=== PATIENT | male | born 2000 | race Caucasian/White ===

== ENCOUNTER 2020-01-30 13:57 | Emergency (ER) | payer SELFPAY ==
[2020-01-30 13:59] VITALS: BP 123/73; PULSE 92; RESP 18; TEMP 36.9; O2SAT 99; BMI 19.5
--- NOTE | 2020-01-30 14:02 | ED_ITS ---
Entered by Corina Crawford, acting as scribe for RobertoBrittany HPI - URI/Sore Throat General: Chief Complaint: Fever Stated Complaint: RUNNY NOSE, COUGH, TEMP Time Seen by Provider: 01/30/20 14:00 Source: patient and RN notes reviewed Mode of arrival: ambulatory Limitations: no limitations History of Present Illness: HPI Narrative: 19 yo male presents to ED with complaints of a sore throat, cough and congestion. He said this began 3 days ago. He said he had an elevated temperature this morning (99.4). He said his temperature felt higher last night be didn't check it. MD elicited complaint: fever, cough, sore throat and other (congestion) Pertinent past history: sinusitis Onset (ago): day(s) (3) Consistency: constant Severity: mild Able to tolerate fluids by mouth: Yes Exacerbating factors: nothing Relieving factors: nothing Context: recent dental work Associated symptoms: Reports no associated symptoms; Deny abdominal pain, chills, chest pain, diarrhea, ear or mastoid pain, headache(s), nausea or vomiting Treatments prior to arrival: other (unknown) Review of Systems General: Reports: other (negative unless marked) Const: Denies: chills, body aches, fatigue, malaise or diaphoresis Eyes: Denies: change in vision or blurry vision ENMT: Denies: painful swallowing, hoarseness, ear pain, ear discharge, Change in hearing or nasal discharge Card: Denies: chest pain, palpitations, irregular heart rhythm, syncope, pre- syncope, shortness of breath on exertion or shortness of breath when lying down Resp: Denies: shortness of breath, wheezing or coughing up blood GI: Denies: abdominal pain, nausea, vomiting, vomiting blood, coffee grounds in vomit, diarrhea, constipation, cramping, blood in stool or black tarry stool : Denies: flank pain, difficulty urinating, painful urination, urinary frequency, urinary urgency, decreased urine ouput, urinary incontinence or blood in urine Musc: Denies: neck pain, back pain, extremity pain, extremity swelling, joint pain, joint swelling, joint warmth or joint stiffness Skin/Breast: Denies: rash, skin tenderness or yellow skin Neuro: Denies: headache, numbness in extremities, weakness in extremities, changes in sensation, lack of coordination, difficulty walking, dizziness, vertigo or confusion Endo: Denies: excessive thirst, tired all the time, cold intolerance, excessive sweating, flushing or hot flashes [place]/Lymph: Denies: easy bruising, easy bleeding, petechiae or enlarged lymph nodes All/Imm: Denies: hives, throat swelling, tongue swelling, facial swelling or acute wheezing PFSH ED PFSH: Social History Smoking and tobacco status: current every day smoker Physical Exam Const: COMMON NORMALS: no apparent distress, oriented x3, no limitations, healthy appearing and well nourished EXAM LIMITATIONS: no altered mental status GENERAL APPEARANCE: cooperative, well kempt and well developed ORIE NTATION/CONSCIOUSNESS: Yes awake HENMT: COMMON NORMALS: normocephalic, head/scalp atraumatic, hearing grossly normal bilaterally, external ears normal, EAC's normal, external nose normal and moist oral mucous membranes HEAD & SCALP: normal to inspection, normocephalic and atraumatic FACE & SINUS: normal facial exam and face symmetric NOSE: external nose normal and nares normal EXTERNAL EAR: Yes external ears normal EXTERNAL AUDITORY CANAL: EAC's normal MOUTH: oral and palatal mucosa normal and tongue normal THROAT: posterior oropharynx abnormal erythema; no exudates Eye: COMMON NORMALS: PERRL, EOMs intact bilaterally, conjunctivae normal and no scleral icterus GENERAL EYE: normal appearance of both eyes and normal light reflex CONJUNCTIVA: Yes conjunctivae normal SCLERA: sclerae normal CORNEA: Yes corneas normal PUPIL: Yes PERRL DIRECT OPHTHALMOSCOPY: Yes normal light reflex Neck/C-Spine: COMMON NORMALS: full ROM, no lymphadenopathy, supple, no meningeal signs and no JVD GENERAL: Yes normal visual inspection and Yes trachea midline CERVICAL SPINE: Yes cervical ROM normal Chest: COMMONS NORMALS: inspection of chest normal and palpation of chest normal Resp: COMMON NORMALS: normal respiratory effort, no retractions, no use of accessory muscles and clear to auscultation bilaterally EFFORT & INSPECTION: Yes able to speak in complete sentences AUSCULTATION: clear to auscultation bilaterally Cardio: COMMON NORMALS: no JVD, regular rate, regular rhythm, S1 normal heart sound, S2 normal heart sound, no gallops, no clicks, no murmurs and no rub JUGULAR VENOUS DISTENTION: no JVD RATE: regular rate RHYTHM: regular rhythm HEART SOUNDS: S1 normal and S2 normal GI: COMMON NORMALS: soft to palpation, non-tender, no hepatosplenomegaly and no masses INSPECTION: Yes normal to inspection PALPATION: Yes soft and Yes no hepatosplenomegaly : COMMON NORMALS: Yes no CVA tenderness BLADDER/KIDNEY EXAM: Yes no CVA tenderness Back/Pelvis: COMMON NORMALS: no CVA tenderness, thoracic and lumbar spine normal to inspection, no thoracic nor lumbar tenderness and thoraco-lumbar ROM normal Extremity: COMMON NORMALS: normal to inspection, full ROM, normal capillary refill, no joint enlargement, no clubbing, cyanosis or edema and no calf tenderness Neuro: COMMON NORMALS: oriented x3, CN's II-XII intact bilaterally, moves all extremities, no focal motor deficits and no sensory deficits noted MENINGEAL SIGNS: Yes no meningeal signs Psych: COMMON NORMALS: mental status grossly normal, thought process normal, cooperative, affect normal, speech normal and activity/motor behavior normal APPEARANCE: Yes well kempt SPEECH: Yes normal speech THOUGHT PROCESS: normal thought process Skin: COMMON NORMALS: no rashes or lesions noted, skin turgor normal, no jaundice, no petechiae and no mottling GENERAL SKIN EXAM: no rashes or lesions noted and turgor normal Course Vital Signs: Vital signs: Vital Signs Temperature 98.5 F 01/30/20 13:59 Pulse Rate 92 01/30/20 13:59 Respiratory Rate 18 01/30/20 13:59 Blood Pressure 123/73 01/30/20 13:59 Pulse Oximetry 99 01/30/20 13:59 MDM - URI/Sore Throat MDM Narrative: Medical decision making narrative: Gilberto is a nice 19-year-old male who comes in with sore throat, congestion and subjective fever. He is specifically concerned about the pandemic of [place] at 19. As his flu and strep are negative I will go ahead and test him. He understands to go home and self quarantine until he gets the results of this test. He has no questions or concerns and understands he is welcome to return should his symptoms worsen. Lab Data: Labs: Lab Results 01/30/20 01/30/20 Range/Units 14:09 14:09 Influenza Type A A g Negative (Negative) POC Influenza B Ag Negative (Negative) Group A Strep Rapi d Negative (Negative) Discharge Plan Discharge Patient Disposition: Home, Self-Care Clinical Impression: Viral infection Condition: Stable Prescriptions: No Action No Known Home Medications RF: 0 Discharge Orders: Discharge Order (Routine); Ordered 01/30/20 Ordered By: Brittany Mejia Referrals: Nga Orozco DO [Physician] - 1-3 days Patient Instructions: Viral Syndrome (ED) Activity Restrictions/Additional Instructions: Please return to the ER immediately for any of the signs or symptoms listed on your discharge instruction sheets, worsening/changing of your symptoms, you are not getting better as quickly as expected, or for ANY other cause or concerns. You will be contacted with results of your COVID-19 test. Remain and home isolation until you have these test results. Coding Level of Care Code ED Disaster Recovery Specialist for [facility] Fwd The documentation recorded by the Yvette zamora Valerie R, accurately reflects the service I personally performed and the decisions made by Roberto robin Eli N Jan 30, 2020 13:57
[2020-01-30 14:50] LABS: Rapid Strep A Test Negative (Negative)
[2020-01-30 15:03] LABS: Influenza A by IFA Negative (Negative); Influenza B by IFA Negative (Negative)
--- NOTE | 2020-01-30 16:13 | PC.NURSE ---
Covid 19 sample collected and taken to lab.
[2020-01-30 16:25] VITALS: BP 115/72; PULSE 103; RESP 16; O2SAT 98
[2020-02-02 12:48] LABS: Coronavirus Overall Results NOT DETECTED
--- NOTE | 2020-02-02 17:04 | PC.NURSE ---
pt contacted and informed of negative COVID 19 test results
== END 2020-01-30 16:26 | disposition home or self-care (01) ==
PROVIDERS: Emergency Provider Emergency Medicine
DX: B34.9 Viral infection, unspecified (principal); F17.200 Nicotine dependence, unspecified, uncomplicated
CPT/HCPCS: 12345; 87081; 87635; 87804; 87880; 99282

== ENCOUNTER 2020-09-10 14:25 | Emergency (ER) | payer SELFPAY ==
[2020-09-10 14:34] VITALS: BP 150/79; PULSE 91; RESP 18; TEMP 36.5; O2SAT 99; BMI 19.5
--- NOTE | 2020-09-10 14:48 | ED_ITS ---
HPI - Allergic Reaction General: Chief complaint: Allergic Reaction Stated complaint: Several Bee Stings on Hands & Arms Time Seen by Provider: 09/10/20 14:39 History of Present Illness: HPI narrative: Patient is a 20-year-old male comes to the ED after being stung by an insect. He is now having pain on his skin where he was stung and he feels short of breath like his throat is tight and swelling. Patient also describes having chest tightness and shortness of breath. Associated symptoms: Deny abdominal pain, nausea or vomiting Review of Systems Const: Denies: fever(s), chills or fatigue Eyes: Denies: change in vision or eye discomfort ENMT: Denies: throat pain, odynophagia, nasal discharge or nasal congestion Card: Denies: chest pain, palpitations, edema, swelling of feet/ankles, dyspnea on exertion or orthopnea Resp: Reports: dyspnea; Denies: productive cough or non-productive cough GI: Denies: abdominal pain, nausea, vomiting, diarrhea, constipation or hematochezia : Denies: flank pain, difficulty urinating, dysuria or hematuria Musc: Denies: neck pain, back pain or extremity swelling Skin/Breast: Reports: skin pain (skin pain around areas he was stung); Denies: rash or new lesions Neuro: Denies: headache(s), numbness in extremities or weakness in extremities PFSH ED PFSH: Social History Smoking and tobacco status: current every day smoker Physical Exam Const: COMMON NORMALS: patient oriented x3 and alert GENERAL APPEARANCE: cooperative and comfortable OTHER: Patient's voice sounded a strained and tight when talking. HENMT: COMMON NORMALS: normocephalic HEAD & SCALP: normocephalic MOUTH: Normal oral and palatal mucosa present THROAT: posterior oropharynx normal and uvula midline Neck/C-Spine: COMMON NORMALS: supple GENERAL: Yes normal visual inspection Resp: COMMON NORMALS: normal respiratory effort, No retractions and No use of accessory muscles AUSCULTATION: wheezes throughout and diminished lung sounds diffuse Cardio: COMMON NORMALS: regular rate, regular rhythm, S1 normal heart sound present, S2 normal heart sound present, No gallops present (Cardio), No clicks present (Cardio), No murmurs present (Cardio) and Peripheral pulses 2+ throughout RATE: regular rate RHYTHM: regular rhythm HEART SOUNDS: S1 normal heart sound present and S2 normal heart sound present PERIPHERAL PULSES: Peripheral pulses 2+ throughout GI: COMMON NORMALS: Normal to inspection, nondistended, normoactive bowel sounds present, Soft to palpation, non-tender and no masses PALPATION: Yes Soft to palpation : COMMON NORMALS: Yes no CVA tenderness BLADDER/KIDNEY EXAM: Yes no CVA tenderness Back/Pelvis: COMMON NORMALS: no CVA tenderness Extremity: COMMON NORMALS: normal to inspection Neuro: COMMON NORMALS: patient oriented x3 and moves all extremities SENSORIUM/ORIENTATION: Yes alert Skin: GENERAL SKIN EXAM: dry skin Course Reevaluation(s): Reevaluation #1: When I went in to see patient from first time his voice is strained and tight. Lungs had diminished sounds throughout wheezing throughout. He was also complaining of having throat swelling and tightness. I immediately went out of the room ordered epi, Benadryl and Solu- Medrol. I told the nurse in charge to give epi immediately and he went and got epi pulled and delivered it quickly. Time: 14:53 Reevaluation #2: checked on patient multiple times after Epi was given. Patient was also given IV Benadryl and Solu-Medrol. Patient said his symptoms are improving and he feels like his shortness of breath is improving and his throat swelling is improving. I listened to patient's lungs and lung sounds have improved and are clear. Patient has no wheezing currently. Time: 15:23 Reevaluation #3: Patient states he feels 100% better. Lungs were clear to auscultation bilaterally. Patient appears to be feeling a lot better. Voice has changed and he states it sounds normal now. Time: 16:26 Vital Signs: Vital signs: Vital Signs Temperature 97.7 F 09/10/20 14:34 Pulse Rate 74 09/10/20 15:17 Respiratory Rate 17 09/10/20 16:39 Blood Pressure 119/55 09/10/20 16:39 Pulse Oximetry 99 09/10/20 15:17 MDM - Allergic Reaction MDM Narrative: Medical decision making narrative: Patient is a 20-year-old male who comes to the ED with an allergic reaction after being stung. Patient was having chest tightness, shortness of breath and described feeling tightness and swelling in his throat. Lung sounds and wheezing throughout and diminished breath sounds throughout. Patient was given epinephrine IM, IV fluids, solu- medrol, benadryl and pepcid while here in the ED. within 10 minutes of patient needing epinephrine shot he was already having improvement. I watched him for over an hour and a half after getting dose of epinephrine. His lung sounds improved dramatically and they were clear to auscultation with no wheezing before discharge. His voice sounded normal and he said he has no throat tightness or swelling. Vitals before discharge blood pressure 119/55, pulse 74, respirations 17, temp 97.7 and O2 sat 99% on room air. Patient was discharged with a prescription for EpiPen, Medrol Dosepak and Benadryl. He was instructed to take Benadryl tonight and complete his Medrol Dosepak prescription. Told him to have his EpiPen prescription filled and keep on him so he can use them if he has another reaction to any stings. I placed a referral to case management for patient to see PCP. Return to ED precautions given. Patient understood with plan. Imaging Data^: CXR: Attestation: I personally reviewed and interpreted this imaging study as follows: Radiologist's impression: [address] [address] XRay Report Signed Patient: Gilberto Ceron Unit #: [id number] : 2000 Age/Sex: 20 / M ADM Date: 09/10/20 Loc: ER Room/Bed: Attending Dr: Ordering Provider/Ordering MD: Mj Cornejo Date of Service: 09/10/20 Procedure(s): XR chest 1V portable [id number] Accession Number(s): [id number] Report Number: [id number] WS: [id number] CHEST XRAY TECHNIQUE: Portable chest. CLINICAL INFORMATION: sob COMPARISON: None. FINDINGS: Heart: Normal cardiac silhouette. Lungs: Hyperinflation. No acute pulmonary infiltrates. Lungs are well aerated. No focal pneumonia or pleural fluid. Bones: Normal visualized bony structures. XR/XR chest 1V portable [id number] IMPRESSION: No acute chest findings Dictated By: Ryan Dinero MD Signed By: Ryan Dinero MD Signed Date/Time: 09/10/201521 DD/ 152 Discharge Plan Discharge Patient Disposition: Home Clinical Impression: Allergic reaction Qualifiers: Encounter type: initial encounter Qualified Code(s): T78.40XA - Allergy, unspecified, initial encounter Condition: Stable Prescriptions: New Benadryl 25 mg capsule 25 mg PO Q8H PRN (Reason: allergic reaction) Qty: 30 RF: 0 Medrol (Fili) 4 mg tablets,dose pack See Rx Instructions .ROUTE .COMPLEX Qty: 21 RF: 0 epinephrine 0.3 mg/0.3 mL auto-injector 0.3 mg IM Q10M PRN (Reason: anaphylaxis) Qty: 2 RF: 0 No Action No Known Home Medications RF: 0 Discharge Orders: Discharge Order (Routine); Ordered 09/10/20 Ordered By: Mj Cornejo Discharge Diet: Regular Discharge Activity: Resume usual activity Patient Instructions: Allergic Reaction Activity Restrictions/Additional Instructions: Follow-up with medical provider as directed in 7-10 days. Take medications as prescribed. Return to the ER or your medical provider if condition worsens. Please read and understand discharge instructions. If any questions, please ask. Discharge Date/Time: 09/10/20 16:41 Coding Level of Care Code ED Painting Technician for [facility] Exam Comprehensive
--- NOTE | 2020-09-10 14:51 | XR_ITS ---
WS: [id number] CHEST XRAY TECHNIQUE: Portable chest. CLINICAL INFORMATION: sob COMPARISON: None. FINDINGS: Heart: Normal cardiac silhouette. Lungs: Hyperinflation. No acute pulmonary infiltrates. Lungs are well aerated. No focal pneumonia or pleural fluid. Bones: Normal visualized bony structures. XR/XR chest 1V portable [id number] IMPRESSION: No acute chest findings
[2020-09-10] MEDS: EPINEPHrine 1 mg/mL INJ 0.5 MG IM (14:57)
[2020-09-10] MEDS: diphenhydrAMINE 50 mg/mL SDV 1mL 25 MG IVP (15:07)
[2020-09-10] MEDS: famotidine 20 mg/2 mL INJ 40 MG IVP (15:09)
[2020-09-10 15:17] VITALS: PULSE 74; RESP 22; O2SAT 99
[2020-09-10 16:11] VITALS: BP 119/55
[2020-09-10 16:39] VITALS: BP 119/55; RESP 17
--- NOTE | 2020-09-12 13:26 | DCPLANNER ---
resource development manager had message to speak with patient about getting established with a primary care physician. resource development manager called phone number [phone] unable to speak with patient at this time, and unable to leave voicemail for patient due to no voicemail box set up.
== END 2020-09-10 16:41 | disposition home or self-care (01) ==
PROVIDERS: Emergency Provider Physician Assistant
DX: T78.40XA Allergy, unspecified, initial encounter (principal); F17.210 Nicotine dependence, cigarettes, uncomplicated
CPT/HCPCS: 12345; 71045; 96361; 96372; 96374; 96375; 99283; J0171; J1200; J2930; J3490

== ENCOUNTER 2022-09-20 16:43 | Emergency (ER) | payer SELFPAY ==
[2022-09-20 16:57] VITALS: BP 112/44; PULSE 92; RESP 16; TEMP 36.8; O2SAT 97; BMI 20.7
--- NOTE | 2022-09-20 19:32 | W.ED.GENADLT ---
HPI - General Adult General: Chief complaint: General Medical Stated complaint: congestion/n/v Time Seen by Provider: 09/20/22 19:30 History of Present Illness: 22-year-old male comes in today with cough and congestion x1 week. Patient reports no improvement in symptoms and feels like he is getting worse. Patient appears nontoxic. Patient appears in no acute distress. Patient denies asthma. Patient does smoke. Patient reports no chronic medical problems or routine medications. Associated symptoms: Reports dyspnea and vomiting Review of Systems Const: Reports: body aches ENMT: Reports: throat pain Resp: Reports: dyspnea and non-productive cough GI: Reports: vomiting; Denies: diarrhea or constipation Musc: Reports: muscle cramps PFSH ED PFSH: Social History Smoking and tobacco status: current every day smoker Physical Exam Const: COMMON NORMALS: alert HENMT: COMMON NORMALS: normocephalic HEAD & SCALP: normocephalic Neck/C-Spine: COMMON NORMALS: full ROM Resp: COMMON NORMALS: normal respiratory effort AUSCULTATION: wheezes GI: COMMON NORMALS: Soft to palpation and non-tender PALPATION: Yes Soft to palpation Extremity: COMMON NORMALS: normal to inspection and full ROM Neuro: SENSORIUM/ORIENTATION: Yes alert Skin: COMMON NORMALS: turgor normal GENERAL SKIN EXAM: turgor normal Course Vital Signs: Vital signs: Vital Signs Temperature 98.2 F 09/20/22 16:57 Pulse Rate 92 09/20/22 16:57 Respiratory Rate 16 09/20/22 16:57 Blood Pressure 112/44 09/20/22 16:57 Pulse Oximetry 97 09/20/22 16:57 Oxygen Delivery Wi thod 09/20/22 16:57 MDM - General Adult Medical Decision Making 22-year-old male comes in today with complaints of cough and congestion for 1 week. On exam patient has some wheezing in lung perez. Good air movement throughout though. Vital signs are normal. Posterior pharynx slightly erythematous. Nasal drainage is noted. Differential diagnosis includes upper respiratory infection, bronchitis, pneumonia. Chest x-ray was unremarkable. Patient was treated for bronchitis with albuterol inhaler, dexamethasone injection, and azithromycin. Patient will continue medications with prednisone and azithromycin and albuterol inhaler. Patient reported understanding of care plan need for follow-up or return to the ER for worsening symptoms. Discharge Plan Discharge Patient Disposition: Home Clinical Impression: Bronchitis Condition: Stable Prescriptions: New azithromycin 250 mg tablet 250 mg PO DAILY 4 Days Qty: 4 0RF prednisone 20 mg tablet 20 mg PO BID 5 Days Qty: 10 0RF benzonatate 100 mg capsule 100 mg PO TID PRN (Reason: cough) Qty: 10 0RF Discontinued methylprednisolone [Medrol (Fili)] 4 mg tablets,dose pack See Rx Instructions .ROUTE .COMPLEX Qty: 21 0RF Rx Instructions: orally per package directions No Action Benadryl 25 mg capsule 25 mg PO Q8H PRN (Reason: allergic reaction) Qty: 30 0RF epinephrine 0.3 mg/0.3 mL auto-injector 0.3 mg IM Q10M PRN (Reason: anaphylaxis) Qty: 2 0RF Rx Instructions: for 2 doses Discharge Orders: Discharge ED (Routine); Ordered 09/20/22 Ordered By: Shaun Cohen Discharge Diet: Usual diet Discharge Activity: Increase activity as tolerated Patient Instructions: Acute Bronchitis (ED) Activity Restrictions/Additional Instructions: Drink plenty of fluids. Use acetaminophen or ibuprofen for discomfort and fever. Use albuterol inhaler 2 puffs every 4 hours as needed for cough, shortness of breath, or wheezing. Take antibiotic azithromycin 250 mg, 1 tablet daily for the next 4 days. Take prednisone 20 mg 2 times daily for the next 5 days. Follow-up with primary care as needed. Return to emergency room for worsening symptoms such as increased shortness of breath, severe chest pain, or new concerns. Coding Level of Care Code ED Development Writer for [facility]
--- NOTE | 2022-09-20 19:33 | XRR_ITS ---
PROCEDURE INFORMATION: Exam: XR Chest Exam date and time: 09/20/2022 7:46 PM Age: 22 years old Clinical indication: Cough; Additional info: Cough congestion TECHNIQUE: Imaging protocol: Radiologic exam of the chest. Views: 1 view. COMPARISON: CR XR chest 1V portable [id number] 09/10/2020 2:59 PM FINDINGS: Lungs: Unremarkable. No consolidation. Pleural spaces: Unremarkable. No pleural effusion. No pneumothorax. Heart/Mediastinum: Unremarkable. No cardiomegaly. Bones/joints: Unremarkable. XR/XR chest 1V portable [id number] IMPRESSION: No acute findings.
[2022-09-20] MEDS: azithromycin 250 mg Tablet 500 MG PO (20:14)
[2022-09-20] MEDS: benzonatate 100 mg Capsule PO ×2 (20:14→20:51)
[2022-09-20] MEDS: dexamethasone 10 mg/mL INJ IM (20:14)
[2022-09-20 20:45] VITALS: PULSE 90; RESP 18; O2SAT 97
[2022-09-20] MEDS: albuterol 8 gm MDI 2 PUFF INHALATION (20:45)
== END 2022-09-20 20:56 | disposition home or self-care (01) ==
PROVIDERS: Emergency Provider Nurse Practitioner Family
DX: J40 Bronchitis, not specified as acute or chronic (principal)
CPT/HCPCS: 71045; 94640; 96372; 99284; J1100; J3535; Q0144

== ENCOUNTER 2024-04-17 08:38 | Emergency (ER) | payer SELFPAY ==
[2024-04-17 08:46] VITALS: BP 126/76; PULSE 75; RESP 17; TEMP 36.7; O2SAT 100
[2024-04-17 08:49] VITALS: BP 114/74; RESP 16; O2SAT 98
--- NOTE | 2024-04-17 09:00 | XRR_ITS ---
PROCEDURE INFORMATION: Exam: XR Chest Exam date and time: 04/17/2024 9:04 AM Age: 23 years old Clinical indication: Cough and fever; Additional info: Fever, cough TECHNIQUE: Imaging protocol: Radiologic exam of the chest. Views: 1 view. COMPARISON: CR XR chest 1V portable [id number] 09/20/2022 7:46 PM FINDINGS: Lungs: Unremarkable. No consolidation. Pleural spaces: Unremarkable. No pleural effusion. No pneumothorax. Heart/Mediastinum: Unremarkable. No cardiomegaly. Bones/joints: Unremarkable. XR/XR chest 1V portable [id number] IMPRESSION: No acute findings.
--- NOTE | 2024-04-17 09:01 | ED_ITS ---
HPI - URI/Sore Throat General: Chief Complaint: Upper Respiratory Infection Stated Complaint: fever, chest pains Time Seen by Provider: 04/17/24 08:50 Source: patient Mode of arrival: ambulatory Limitations: no limitations History of Present Illness: Patient is a 23-year-old male here with complaints of a sore throat, fevers, body aches, cough, and chest congestion over the past 5 days. States fevers have been intermittent and as high as 101. He states last night he had a few episodes of vomiting. He is not having any abdominal pain. No diarrhea. He states his daughter is sick with a sore throat/similar symptoms and was seen and told it was a viral infection. Patient is not having any significant shortness of breath. He states his chest hurts/cordon only when coughing. MD elicited complaint: fever, cough and sore throat Onset (ago): day(s) Consistency: constant Severity: moderate Description of mucous: clear Able to tolerate fluids by mouth: Yes Exacerbating factors: nothing Relieving factors: nothing Context: sick contacts (daughter sick with sore throat) Associated symptoms: Reports chest pain (when coughing), fever(s), nausea and vomiting; Deny abdominal pain, chills, diarrhea, ear or mastoid pain, headache(s), nasal congestion or sinus pain Review of Systems Const: Reports: fever(s) and body aches; Denies: chills or fatigue Eyes: Denies: change in vision, blurry vision, photophobia, eye discomfort or eye discharge ENMT: Reports: throat pain and odynophagia; Denies: enlarged tonsils, swelling of lips/tongue, oral sores, ear or mastoid pain, ear discharge, nasal discharge, nasal congestion, post nasal drip or sinus pain Card: Reports: chest pain (when coughing); Denies: palpitations, irregular heart rhythm, edema, swelling of feet/ankles, lightheadedness, syncope, pre-syncope, dyspnea on exertion, orthopnea, leg pain with exertion or acrocyanosis Resp: Reports: non-productive cough and chest congestion; Denies: dyspnea, productive cough, wheezing, change in phlegm color or hemoptysis GI: Reports: nausea and vomiting; Denies: abdominal pain or diarrhea : Denies: flank pain, dysuria or hematuria Musc: Denies: neck pain, back pain, extremity pain or joint pain Skin/Breast: Denies: rash Neuro: Denies: headache(s) or dizziness All/Imm: Denies: facial swelling or seasonal rhinorrhea PFSH ED PFSH: Social History Smoking and tobacco/nicotine status: current every day tobacco/nicotine user Physical Exam Const: COMMON NORMALS: no acute distress, average body habitus, patient oriented x3, no limitations, healthy appearing, alert and well nourished GENERAL APPEARANCE: cooperative ORIENTATION/CONSCIOUSNESS: Yes awake, Yes oriented to person, Yes oriented to place and Yes oriented to time HENMT: COMMON NORMALS: normocephalic, atraumatic, hearing grossly normal bilaterally, external ears normal, EAC's normal, TM's normal bilaterally, Normal external nose present, Normal nasal mucous membranes and turbinates present, moist oral mucous membranes and oropharynx normal HEAD & SCALP: normal to inspection, normocephalic and atraumatic FACE & SINUS: normal facial exam and sinuses nontender NOSE: Normal external nose present and Normal nasal mucous membranes and turbinates present EXTERNAL EAR: Yes external ears normal EXTERNAL AUDITORY CANAL: EAC's normal TYMPANIC MEMBRANE: TM's normal bilaterally MOUTH: Normal oral and palatal mucosa present and lip normal THROAT: posterior oropharynx normal, tonsils normal and uvula midline Eye: COMMON NORMALS: Equal, round and reactive pupils present, EOMs intact bilaterally and conjunctivae normal CONJUNCTIVA: Yes conjunctivae normal PUPIL: Yes Equal, round and reactive pupils present Neck/C-Spine: COMMON NORMALS: no lymphadenopathy and no meningeal signs Chest: COMMONS NORMALS: normal inspection of the chest and normal palpation of entire chest wall Resp: COMMON NORMALS: normal respiratory effort and clear to auscultation bilaterally AUSCULTATION: clear to auscultation bilaterally Cardio: COMMON NORMALS: regular rate and regular rhythm RATE: regular rate RHYTHM: regular rhythm GI: COMMON NORMALS: Normal to inspection, nondistended, normoactive bowel sounds present, Soft to palpation and non-tender PALPATION: Yes Soft to palpation Extremity: GENERAL: Yes normal exam except as noted Neuro: COMMON NORMALS: patient oriented x3 SENSORIUM/ORIENTATION: Yes alert, Yes oriented to person, Yes oriented to place and Yes oriented to time MENINGEAL SIGNS: Yes no meningeal signs Skin: COMMON NORMALS: no rashes or lesions noted GENERAL SKIN EXAM: no rashes or lesions noted Course Vital Signs: Vital signs: Vital Signs Temperature 98.0 F 04/17/24 08:46 Pulse Rate 75 04/17/24 08:46 Respiratory Rate 16 04/17/24 08:49 Blood Pressure 114/74 04/17/24 08:49 Pulse Oximetry 98 04/17/24 08:49 Oxygen Delivery Me thod Room Air 04/17/24 08:49 MDM - URI/Sore Throat Medical Decision Making CXR is unremarkable. Respiratory panel collected and pending. Symptoms consistent with a viral upper respiratory infection/viral syndrome. Discussed conservative therapies at home. Return to ED precautions given. Differential Diagnosis Likely upper respiratory infection, viral infection, bronchitis, influenza and pharyngitis Lab Data I reviewed the patient's lab results. XR interpretation done by ED provider, pending radiology final review Discharge Plan Discharge Patient Disposition: Home Clinical Impression: Upper respiratory infection Condition: Stable Prescriptions: No Action Benadryl 25 mg capsule 25 mg PO Q8H PRN (Reason: allergic reaction) Qty: 30 0RF epinephrine 0.3 mg/0.3 mL auto-injector 0.3 mg IM Q10M PRN (Reason: anaphylaxis) Qty: 2 0RF Rx Instructions: for 2 doses benzonatate 100 mg capsule 100 mg PO TID PRN (Reason: cough) Qty: 10 0RF Discharge Orders: Discharge ED (Routine); Ordered 04/17/24 Ordered By: Carly Rodriguez Patient Instructions: Upper Respiratory Infection (DC), Viral Syndrome (ED) Coding Level of Care Code ED Veterinarian Laboratory Animal Care for [facility] Silver[facility]
[2024-04-17 09:24] VITALS: BP 114/74; PULSE 66; RESP 16; O2SAT 97
[2024-04-17 11:09] LABS: Adenovirus Not Detected (NOT DETECT); Chlamydia Pneumoniae Not Detected (NOT DETECT); Coronavirus 229E,HKU1,NL63,OC4 Not Detected (NOT DETECT); Human Metapneumovirus Not Detected (NOT DETECT); Human Rhinovirus/Enterovirus Detected (NOT DETECT); Influenza A Not Detected (NOT DETECT); Influenza A H1 Not Detected (NOT DETECT); Influenza A H1-2009 Not Detected (NOT DETECT); Influenza A H3 Not Detected (NOT DETECT); Influenza B Not Detected (NOT DETECT); Mycoplasma Pneumoniae Not Detected (NOT DETECT); Parainfluenza Virus Type 1 Not Detected (NOT DETECT); Parainfluenza Virus Type 2 Not Detected (NOT DETECT); Parainfluenza Virus Type 3 Not Detected (NOT DETECT); Parainfluenza Virus Type 4 Not Detected (NOT DETECT); Respiratory Syncytial Virus A Not Detected (NOT DETECT); Respiratory Syncytial Virus B Not Detected (NOT DETECT); SARS-COV-2 Not Detected (NOT DETECT)
== END 2024-04-17 09:26 | disposition home or self-care (01) ==
PROVIDERS: Emergency Provider Physician Assistant
DX: J06.9 Acute upper respiratory infection, unspecified (principal); Z72.0 Tobacco use
CPT/HCPCS: 71045; 87486; 87581; 87633; 99284

== ENCOUNTER 2025-07-07 15:38 | Emergency (ER) | payer SELFPAY ==
[2025-07-07 15:47] VITALS: BP 125/75; PULSE 64; RESP 16; TEMP 36.9; O2SAT 100
--- NOTE | 2025-07-07 16:18 | ED_ITS ---
HPI - Eye Problem General: Chief complaint: Eye Problems Stated complaint: rt eye inj Time Seen by Provider: 07/07/25 15:48 History of Present Illness: 25-year-old male presents emergency room with complaints of pain in his right eye. He got some sawdust in the eye last night he thought he flushed it out but this morning it is photophobic still irritating. He is tried some [id number] drops with no relief. Related Data Previous Rx's ?Medication ?Instructions ?Recorded diphenhydramine HCl 25 mg capsule 25 mg PO Q8H PRN all ergic reaction 09/10/20 (Benadryl) #30 caps epinephrine 0.3 mg/0.3 mL 0.3 mg (0.3 mL) IM Q10M PRN 09/10/20 injection, auto-injector anaphylaxis #2 ea benzonatate 100 mg capsule 100 mg PO TID PRN cough #10 caps 09/20/22 tobramycin 0.3 %-dexamethasone 1 drp ophthalmic (eye) Q4H #5 mL 07/07/25 0.05 % eye drops,suspension (Tobradex ST) Allergies Allergy/AdvReac Type Severity Reaction Status Date / Time No Known Allergies Allergy Verified 07/07/25 15:45 [facility] ED PFSH: Social History Smoking and tobacco/nicotine status: current every day tobacco/nicotine user Physical Exam Eye: OTHER: Gross exam of the right eye there is no foreign bodies present eversion of the eyelids no foreign bodies. Eye stained with fluorescein after application of tetracaine. There is a abrasion at 9-10 o'clock region of the right cornea at the edge. Course Vital Signs: Vital signs: Vital Signs Temperature 98.4 F 07/07/25 15:47 Pulse Rate 64 07/07/25 15:47 Respiratory Rate 16 07/07/25 15:47 Blood Pressure 125/75 07/07/25 15:47 Pulse Oximetry 100 07/07/25 15:47 MDM - Eye Problem Medical Decision Making Cyclogyl applied 2 drops to dilate eye for comfort. Started on TobraDex drops. Follow-up with ophthalmology if not improving No radiology studies performed this visit Discharge Plan Discharge Patient Disposition: Home Clinical Impression: Corneal abrasion Condition: Stable Prescriptions: New Tobradex ST 0.3-0.05 % drops,suspension 1 drp ophthalmic (eye) Q4H Qty: 5 0RF Rx Instructions: While awake x 5 days No Action Benadryl 25 mg capsule 25 mg PO Q8H PRN (Reason: allergic reaction) Qty: 30 0RF epinephrine 0.3 mg/0.3 mL auto-injector 0.3 mg IM Q10M PRN (Reason: anaphylaxis) Qty: 2 0RF Rx Instructions: for 2 doses benzonatate 100 mg capsule 100 mg PO TID PRN (Reason: cough) Qty: 10 0RF Discharge Orders: Discharge ED (Routine); Ordered 07/07/25 Ordered By: Robbie Malhotra Discharge Diet: Usual diet Patient Instructions: Opioid Safety, Pain Management, Patient Portal & Ruperto Instructions Activity Restrictions/Additional Instructions: [facility]. It is very important that you follow up as instructed or that you return to the Emergency Department should you have concerns or if your condition changes or worsens in any way. Emergency department visits are focused on emergent conditions, in some cases you may require further evaluation on an outpatient basis. You were seen emergency room for irritation to your right eye. Under black light exam with fluorescein dye there is a corneal abrasion at the 8 to 9 o'clock position of the cornea laterally. There is not appear to be any retained foreign bodies. Your eye was dilated to decrease pain and use the antibiotic steroid drops given 1 drop every 4 hours while awake for the the next approximately 5 days. If you have any further problems follow-up with your eye doctor. (Please note that included in your discharge packet is information concerning opioid safety and pain management. This information is given to all patients were discharged from the ER regardless of their discharge diagnosis or the medicines they usually take or are prescribed.) Print Language: Hungarian Coding Level of Care Code ED Landscape Management Technician for Reza Silverio
[2025-07-07] MEDS: tetracaine 0.5% Op Soln 4 mL Btl 1 DROP EYE-RIGHT (16:20)
[2025-07-07] MEDS: cyclopentolate 1% Op Soln 2 mL Btl 1 DROP EYE-RIGHT (16:40)
== END 2025-07-07 16:41 | disposition home or self-care (01) ==
PROVIDERS: Emergency Provider Family Medicine
DX: S05.01XA Injury of conjunctiva and corneal abrasion without foreign body, right eye, initial encounter (principal); Z72.0 Tobacco use; W44.8XXA Other foreign body entering into or through a natural orifice, initial encounter
CPT/HCPCS: 99283; J9999